=== PATIENT | female | born 1985 | race Hispanic/Latino ===

== ENCOUNTER 2017-02-11 09:02 | Day surgery (SDC) | payer MEDICARE ==
[2017-02-11] MEDS ORDERED: NACL BACTERIOSTATIC INFILTRATI ONE (10:55)
[2017-02-11] MEDS ORDERED: PEPCID PO NR (11:00)
[2017-02-11] MEDS ORDERED: NACL 0.9% 1000 ML 1,000 ML IV SCH (11:00)
[2017-02-11] MEDS ORDERED: VERSED IV NR (11:00)
[2017-02-11] MEDS ORDERED: NEO SYNEPHRINE/NS Syringe(OR USE) IV ONE (11:00)
[2017-02-11] MEDS ORDERED: DILAUDID IV PRN (11:13)
--- NOTE | 2017-02-11 11:14 | Anesthesia Day of Surgery ---
Anesthesia Day of Surgery - Day of Surgery Patient Examined: Yes Patient H&P Reviewed: Yes Patient is NPO: Yes
--- NOTE | 2017-02-11 11:21 | Anesthesia Consultation ---
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
[2017-02-11] MEDS ORDERED: DIPRIVAN 10 MG/ML IV ONE (13:13)
[2017-02-11] MEDS ORDERED: DILAUDID ONE (13:13)
[2017-02-11] MEDS ORDERED: VANCOMYCIN/NS 1 GM/250 ML 1 GM/250 ML BAG IV NR (14:35)
[2017-02-11] MEDS ORDERED: LOVENOX SUB-Q NR (14:43)
[2017-02-11] MEDS ORDERED: LOVENOX SUB-Q ONE (14:44)
[2017-02-11] MEDS ORDERED: OMNIPAQUE (300 MG) IR ONE (15:15)
[2017-02-11] MEDS ORDERED: WATER FOR IRRIG STERILE IR ONE (15:15)
[2017-02-11] MEDS ORDERED: XYLOCAINE MPF 2% ONE (15:17)
--- NOTE | 2017-02-11 15:56 | Short Stay Summary ---
Short Stay Documentation Date of service: 02/11/17 - History H&P: obtained from office - Allergies and Medications Current Medications: Allergies amoxicillin Allergy (Verified 02/04/17 10:31) Hives cephalexin monohydrate [From Keflex] Allergy (Verified 02/04/17 10:29) Rash latex Allergy (Verified 02/04/17 10:30) Rash levofloxacin [From Levaquin] Allergy (Verified 02/04/17 10:30) Rash prednisone Allergy (Verified 02/04/17 10:30) Rash vasopressin Adverse Reaction (Verified 02/04/17 10:31) Anaphylaxis Home Medications Medication Instructions Recorded Confirmed Last Taken Type Nitrofurantoin [place]/M-Cryst 100 mg PO Q12HR 02/04/17 02/04/17 Unknown History [Macrobid CAP] Active Medications Enoxaparin Sodium (Lovenox) 40 mg SUB-Q PREOP NR Stop: 02/11/17 23:59 Last Admin: 02/11/17 14:48 Dose: 40 mg Hydromorphone HCl (Dilaudid) 0.25 mg IV Q10MIN PRN PRN Reason: Pain, Moderate (4-6) Stop: 02/11/17 23:59 Sodium Chloride (Nacl 0.9% 1000 Ml) 1,000 mls @ 75 mls/hr IV DIRECT BHUMI Last Admin: 02/11/17 11:30 Dose: 75 mls/hr Vancomycin HCl (Vancomycin/Ns 1 Gm/250 Ml) 1 gm in 250 mls @ 167.007 mls/hr IV PREOP NR PRN Reason: Protocol Stop: 02/11/17 23:59 Midazolam HCl (Versed) 2 mg IV PREOP NR Stop: 02/11/17 23:59 Last Admin: 02/11/17 11:30 Dose: 2 mg - Brief post op/procedure progress note Date of procedure: 02/11/17 Pre-op diagnosis: rec uti, ngb, hydro Post-op diagnosis: same Procedure: cysto rpg, bladder bx, eua Anesthesia: GETA Findings: lt hydro, bladder lesions Surgeon: SAMPSON SPRING Estimated blood loss: minimal Pathology: list (bx x3, post left, post right, right lat) Specimen disposition: to lab Condition: stable - Hospital course Hospital course: orpacuhome - Disposition Condition at discharge: Good Disposition: DC-01 TO HOME OR SELFCARE Short Stay Discharge Plan Activity: advance as tolerated Diet: advance as tolerated Follow up with: SAMPSON SPRING MD [Staff Physician] - 7 Days
[2017-02-11] MEDS ORDERED: ZOFRAN ONE (16:02)
[2017-02-11] MEDS ORDERED: TORADOL ONE (16:02)
[2017-02-11 18:06] VITALS: BP 121/58
--- NOTE | 2017-02-11 22:07 | Post Anesthesia Evaluation ---
- Post Anesthesia Evaluation Patient Participated: Yes Airway Patent: Yes Stable Respiratory Function: Yes Nausea/Vomiting: No Temp > 96.8F: Yes Pain Manageable: Yes Adequeate Hydration: Yes Anesthesia Complications: No Block Receding Appropriately: Not Applicable Patient on Ventilator: No
--- NOTE | 2017-02-12 07:23 | Fluoroscopy Report ---
FLUOROSCOPY RETROGRADE UROGRAPHY History: Hydronephrosis. Findings: Fluoroscopy was provided by radiology during retrograde urography by urology. 10 fluoroscopic images were captured. Glass Cylinder Flanger film demonstrates no obvious pathologic calcifications. The retrograde pyelogram images are slightly limited but no ureteral filling defect or stricture is appreciated. Multiple bladder biopsies were performed per the procedural notes. Correlate with the report by Dr. Hanna if needed. Impression: No ureteral filling defect is identified.
--- NOTE | 2017-03-04 10:34 | Operative Report ---
PREOPERATIVE DIAGNOSES: 1. Spina bifida. 2. Recurrent urinary tract infection. 3. Hydronephrosis. POSTOPERATIVE DIAGNOSES: 1. Spina bifida. 2. Recurrent urinary tract infection. 3. Hydronephrosis. PROCEDURES: Cystoscopy, bilateral RPG, bladder biopsies, and exam under anesthesia. ESTIMATED BLOOD LOSS: Minimal. COMPLICATIONS: None. FINDINGS: Large amount of debris within the bladder, which was irrigated and evacuated. Left hydro, but the patient declined any ureteroscopy or stent likely chronic neurogenic bladder findings. CLINICAL INDICATIONS: Counseled RCBA, antibiotics, and SCD. The patient with spina bifida, recurrent urinary tract infection, CIC. The patient left hydro with obstructed kidney with poor function, likely chronic. The patient has declined nephrostomy tube, stent, declined even during this procedure, any ureteroscopy, or stent placement. She understands or believes to be chronic, unable to assess that she would rapidly lose function, infection, sepsis, or other etiology such as cancer could be the source without doing these. She clearly understood and does not want to do any evaluation. Of course with her history, this is most likely a chronic obstructive finding. She only wants to monitor with periodic nuclear renal scans, but of course, she knows cancer are loss of function, and putting dialysis risk, antibiotics, and SCDs. DESCRIPTION OF PROCEDURE: The patient was transferred to OR suite in supine position, anesthesia, dorsal lithotomy, prepped and draped in standard fashion. A 22 Turkmen scope passed. Pancystoscopy 30 and 70 lens was performed. There were some areas of erythema slightly irregular. Right retrograde demonstrated normal right distal ureter, proximal ureter, renal pelvis, calyces, no filling defects or hydro seemed to drain adequately. Left retrograde demonstrated definite hydronephrosis with very slow drainage, no clear filling defect in the right or left side in the ureter, renal pelvis or calyces. At this point, due to the patient's wishes, no stent was placed. There were no ureteroscopy was done. Additionally, at this point, biopsies were taken of these suspicious area using flexible biopsy forceps. Biopsy was taken at the posterior and lateral monk and sent for pathology and surrounding areas especially the posterior was fulgurated, which could be a low level lesion RATE MARKER. At this point, we elected to proceed with the next phase, the bladder was irrigated. Of note, at the start of the procedure, there was large amount of debris within the bladder. This was irrigated and evacuated, it could be source of some symptoms or chronic filled out from inflammation or infection in the past. This was flushed, irrigated out with normal saline, and took several irrigations and then we proceeded with the procedures as described above. Next, at this point, the scope was withdrawn. Exam under anesthesia demonstrated no palpable urethral or vaginal masses. The patient was awakened and transferred to PACU in good and stable condition. JOB# [id number] ATS/NTS
== END 2017-02-11 17:50 | disposition home or self-care (01) ==
LOC: OR 09:02
PROVIDERS: ATTEND Urology
DX: N13.30 Unspecified hydronephrosis (principal); N30.20 Other chronic cystitis without hematuria; N30.00 Acute cystitis without hematuria; N39.0 Urinary tract infection, site not specified; Q05.9 Spina bifida, unspecified; I10 Essential (primary) hypertension; F40.240 Claustrophobia; K21.9 Gastro-esophageal reflux disease without esophagitis; E03.9 Hypothyroidism, unspecified; E66.01 Morbid (severe) obesity due to excess calories; Z68.43 Body mass index [BMI] 50.0-59.9, adult; Z88.8 Allergy status to other drugs, medicaments and biological substances; Z88.1 Allergy status to other antibiotic agents; Z91.040 Latex allergy status; Z98.890 Other specified postprocedural states; Z79.899 Other long term (current) drug therapy; Z84.1 Family history of disorders of kidney and ureter
CPT/HCPCS: 52204; 74420; 81025; 88305; A4217; C1758; J1170; J1650; J1885; J2250; J2370; J2405; J2704; J3370; J7030; Q9967